=== PATIENT | female | born 1965 | race Caucasian/White ===

== ENCOUNTER → 2017-04-19 | Outpatient (CLI) | payer OTHER ==
[~2017-04-19] MED LIST: HYOS0.1283 SL; ONDA8TAB13 PO
--- NOTE | 2017-04-19 14:05 | Diagnostic Imaging Report ---
INDICATION: Digital mammogram bilateral screening. This study was compared to the prior exams of 03/29/16, 03/17/15 and 08/03/14. At this time, there are no current complaints. The current study was also evaluated with a Computer Aided Detection (CAD) system. FINDINGS: The fibroglandular tissue in both breasts is heterogeneously dense. This does limit the sensitivity of this exam. Overall, there does not appear to have been any significant change when compared to the prior study. No primary or secondary sign of malignancy is noted. IMPRESSION: There is no radiographic evidence for malignancy. ACR BI-RADS Category 1: Negative. Result letter will be mailed to the patient. Note: At least 10% of breast cancer is not imaged by mammography. Dictated by: Dictated on workstation # [id number]
== END ==
LOC: RAD 09:47
PROVIDERS: ATTEND Obstetrics & Gynecology
DX: Z12.31 Encounter for screening mammogram for malignant neoplasm of breast (principal)
CPT/HCPCS: 77067

== ENCOUNTER 2017-09-02 12:02 | Outpatient (CLI) | payer OTHER ==
[~2017-09-02] VITALS: Ht 154.9 cm; Wt 63.5 kg
[2017-09-02] MEDS ORDERED: CALC1TAB PO (12:12)
[2017-09-02] MEDS ORDERED: MULT-35 PO (12:12)
[2017-09-02] MEDS ORDERED: PRAV20TA3 PO (12:12)
[2017-09-02] MEDS ORDERED: DOCU-143 PO (12:12)
[2017-09-02] MEDS ORDERED: LORA10TA76 PO (12:12)
[2017-09-02 12:15] VITALS: BP 144/93
[2017-09-02 12:43] LABS: BASOPHILS % (AUTO) 1 % (0-10); EOSINOPHILS # (AUTO) 0.3 10^3/uL (0.0-0.3); EOSINOPHILS % (AUTO) 5 % (0-10); LYMPHOCYTES # (AUTO) 1.8 X 10^3 (1.0-4.0); LYMPHOCYTES % (AUTO) 35 % (12-44); MEAN CORPUSCULAR HEMOGLOBIN 30 PG (25-34); MEAN CORPUSCULAR HGB CONC 33 G/DL (32-36); MEAN CORPUSCULAR VOLUME 92 FL (80-99); MEAN PLATELET VOLUME 10.2 FL (7.4-10.4); MONOCYTES # (AUTO) 0.3 X 10^3 (0.0-1.0); MONOCYTES % (AUTO) 7 % (0-12); NEUTROPHILS # (AUTO) 2.7 X 10^3 (1.8-7.8); NEUTROPHILS % (AUTO) 53 % (42-75); PLATELET COUNT 327 10^3/uL (130-400); RED BLOOD COUNT 4.47 10^6/uL (4.35-5.85); RED CELL DISTRIBUTION WIDTH 12.6 % (10.0-14.5); WHITE BLOOD COUNT 5.1 10^3/uL (4.3-11.0)
[2017-09-04] MEDS ORDERED: DOCU-143 PO (12:58)
[2017-09-04] MEDS ORDERED: OXYC-202 PO (12:58)
[2017-09-04] MEDS ORDERED: IBUP-1780 PO (12:58)
== END 2017-09-02 13:32 | disposition home or self-care (01) ==
LOC: PREOP 12:02
PROVIDERS: ATTEND Obstetrics & Gynecology
DX: Z01.812 Encounter for preprocedural laboratory examination (principal); R10.2 Pelvic and perineal pain; N93.8 Other specified abnormal uterine and vaginal bleeding; N92.0 Excessive and frequent menstruation with regular cycle; D64.9 Anemia, unspecified; R19.00 Intra-abdominal and pelvic swelling, mass and lump, unspecified site
CPT/HCPCS: 36415; 85025; 87081

== ENCOUNTER → 2018-04-24 | Outpatient (CLI) | payer OTHER ==
[~2018-04-24] MED LIST changes: +CALC1TAB PO; +DOCU-143 PO; +IBUP-1780 PO; +LORA10TA76 PO; +MULT-35 PO; +OXYC-202 PO; +PRAV20TA3 PO
--- NOTE | 2018-04-24 10:35 | Diagnostic Imaging Report ---
INDICATION: Routine screening. COMPARISON: 04/19/2017 and 03/29/2016. TECHNIQUE: 2D and 3D bilateral screening mammography was performed with CAD. FINDINGS: Both breasts are heterogeneously dense, limiting the sensitivity of mammography. No discrete mass or malignant appearing microcalcifications are seen. The axillae are unremarkable. IMPRESSION: No mammographic features suspicious for malignancy are identified. ACR BI-RADS Category 1: Negative. Result letter will be mailed to the patient. Note: At least 10% of breast cancer is not imaged by mammography. Dictated by: Dictated on workstation # [id number]
== END ==
LOC: RAD 07:20
PROVIDERS: ATTEND Obstetrics & Gynecology
DX: Z12.31 Encounter for screening mammogram for malignant neoplasm of breast (principal)
CPT/HCPCS: 77067

== ENCOUNTER → 2019-04-28 | Outpatient (CLI) | payer OTHER ==
[~2019-04-28] MED LIST changes: -OXYC-202 PO; +OXYC1TAB12 PO
--- NOTE | 2019-04-28 13:10 | Diagnostic Imaging Report ---
INDICATION: Routine screening. COMPARISON: 04/24/2018 and 04/18/2017. TECHNIQUE: 2D and 3D bilateral screening mammography was performed with CAD. FINDINGS: Both breasts are heterogeneously dense, limiting the sensitivity of mammography. There is a density in the right breast in the region of the axillary tail on the MLO view. This may represent superimposition and additional views are recommended. The left breast is unremarkable. No suspicious microcalcifications are seen. IMPRESSION: Right breast density. Additional views are recommended for further evaluation. ACR BI-RADS Category 0: Incomplete. (Needs additional imaging evaluation). Result letter will be mailed to the patient. Note: At least 10% of breast cancer is not imaged by mammography. Dictated by: Dictated on workstation # [id number]
== END ==
LOC: RAD 07:26
PROVIDERS: ATTEND Obstetrics & Gynecology
DX: Z12.31 Encounter for screening mammogram for malignant neoplasm of breast (principal); R92.8 Other abnormal and inconclusive findings on diagnostic imaging of breast
CPT/HCPCS: 77067

== ENCOUNTER → 2019-05-14 | Outpatient (CLI) | payer OTHER ==
--- NOTE | 2019-05-14 09:55 | Diagnostic Imaging Report ---
INDICATION: Right breast density. Patient presents for additional views. COMPARISON: Correlation is made with the screening study from 04/28/2019. TECHNIQUE: Unilateral right 2D and 3D diagnostic mammography was performed. This includes exaggerated CC, repeat MLO, 90 degree MLO, and compression MLO views. FINDINGS: The right breast remains heterogeneously dense. No underlying mass is seen with additional views. An area of density near the axillary tail appears to disperse with compression and is consistent with superimposed tissue. No suspicious calcifications are seen. IMPRESSION: Additional views fail to demonstrate a discrete mass. The patient may return to routine annual screening mammography. ACR BI-RADS Category 1: Negative. Result letter will be mailed to the patient. Note: At least 10% of breast cancer is not imaged by mammography. Dictated by: Dictated on workstation # [id number]
== END ==
LOC: RAD 07:54
PROVIDERS: ATTEND Obstetrics & Gynecology
DX: R92.2 Inconclusive mammogram (principal)

== ENCOUNTER → 2020-10-05 | Outpatient (CLI) | payer OTHER ==
--- NOTE | 2020-10-05 10:12 | Diagnostic Imaging Report ---
INDICATION: Routine screening. COMPARISON: 04/28/2019 and 04/24/2018. TECHNIQUE: 2D and 3D bilateral screening mammography was performed with CAD. FINDINGS: Both breasts are heterogeneously dense, limiting the sensitivity of mammography. No spiculated mass or malignant appearing microcalcifications are seen. The axillae are unremarkable. IMPRESSION: No mammographic features suspicious for malignancy are identified. ACR BI-RADS Category 1: Negative. Result letter will be mailed to the patient. Note: At least 10% of breast cancer is not imaged by mammography. Dictated by: Dictated on workstation # [id number]
== END ==
LOC: RAD 07:30
PROVIDERS: ATTEND Obstetrics & Gynecology
DX: Z12.31 Encounter for screening mammogram for malignant neoplasm of breast (principal)
CPT/HCPCS: 77063; 77067

== ENCOUNTER → 2021-12-27 | Outpatient (CLI) | payer BC, OTHER ==
--- NOTE | 2021-12-27 12:17 | Diagnostic Imaging Report ---
Indication: Routine screening. Comparison is made with prior mammogram 10/05/2020 and 04/28/2019. 2-D and 3-D bilateral screening mammography was performed with CAD. Both breasts are heterogeneously dense, limiting the sensitivity of mammography. The parenchymal pattern is stable. No mass or malignant-appearing microcalcifications are seen. Axillae are unremarkable. IMPRESSION: BI-RADS Category 1 No mammographic features suspicious for malignancy are identified. ACR BI-RADS Category 1: Negative. Result letter will be mailed to the patient. Note: At least 10% of breast cancer is not imaged by mammography. Dictated by: Dictated on workstation # [id number]
== END ==
LOC: RAD 07:30
PROVIDERS: ATTEND Obstetrics & Gynecology
DX: Z12.31 Encounter for screening mammogram for malignant neoplasm of breast (principal)
CPT/HCPCS: 77063; 77067

== ENCOUNTER → 2023-03-20 | Outpatient (CLI) | payer BC ==
--- NOTE | 2023-03-20 11:07 | Diagnostic Imaging Report ---
INDICATION: Screening. TECHNIQUE: Bilateral 3D screening mammograms. COMPARISON: 12/27/2021 and 10/05/2020. FINDINGS: There is moderately dense breast parenchyma bilaterally. A subcentimeter circumscribed nodular focus is seen in the lateral parenchyma of the left breast. This is better seen on the current study which could in part be due to technique. This may represent a cyst or lymph node. No dominant spiculated mass or clustered microcalcifications are identified. IMPRESSION: Category 2, benign findings. Continued physical examination and annual mammographic followup are recommended. ACR BI-RADS Category 2: Benign findings. Result letter will be mailed to the patient. Note: At least 10% of breast cancer is not imaged by mammography. Dictated by: Dictated on workstation # [id number]
== END ==
LOC: RAD 07:45
PROVIDERS: ATTEND Nurse Practitioner Women's Health
DX: Z12.31 Encounter for screening mammogram for malignant neoplasm of breast (principal)
CPT/HCPCS: 77063; 77067